=== PATIENT | female | born 1995 | race Caucasian/White ===

== ENCOUNTER 2017-07-20 14:34 | Emergency (ER) | payer SELFPAY ==
--- NOTE | 2017-07-20 14:46 | EDM.PDOC ---
ED HPI GENERAL MEDICAL PROBLEM - General Chief Complaint: Head Injury Stated Complaint: [id number] FELL AND HIT HEAD ON WEDNESDAY Time Seen by Provider: 07/20/17 14:46 Source of Information: Reports: Patient, RN, RN Notes Reviewed History Limitations: Reports: No Limitations - History of Present Illness INITIAL COMMENTS - FREE TEXT/NARRATIVE: Pt fell off a saw horse on Wednesday, July 17 and hit her forehead. Denies LOC , or leak of clear or bloody fluid from the ears or nose. Admits to nausea for a few hours after the injury, but denies vomiting. Denies any other injury. Pt c /o persistent headache. Onset: Sudden Onset Date: 07/17/17 Duration: Constant Location: Reports: Head Quality: Reports: Ache Severity: Moderate Improves with: Reports: None Worsens with: Reports: None Associated Symptoms: Reports: No Other Symptoms Headache Pain Score (Numeric/FACES): 5 - Related Data Allergies Allergy/AdvReac Type Severity Reaction Status Date / Time No Known Allergies Allergy Verified 07/20/17 14:39 Home Meds: Home Meds . [No Known Home Meds] 07/20/17 [History] Past Medical History - Past Health History Medical/Surgical History: Denies Medical/Surgical History Social & Family History - Family History Family Medical History: Noncontributory - Tobacco Use Smoking Status *Q: Current Some Day Smoker Tobacco Use Within Last Twelve Months: Cigarettes - Living Situation & Occupation Living situation: Reports: with Family ED ROS GENERAL - Review of Systems Review Of Systems: ROS reveals no pertinent complaints other than HPI. ED EXAM, HEAD INJURY - Physical Exam Exam: See Below Exam Limited By: No Limitations General Appearance: Alert, WD/WN, No Apparent Distress Head: Normocephalic, Scalp Tenderness (with mild soft tissue swelling, no visible bruising) Nexus Criteria: No: Posterior, Midline Cervical Tenderness, Evidence of Intoxication, Altered Level of Consciousness, Focal Neurological Deficit, Painful Distraction Injuries Eyes: Bilateral Eye: EOMI, Normal Inspection, PERRL Ears: Normal External Exam, Normal Canal, Hearing Grossly Normal, Normal TMs, Other (no hemotympanum) Nose: Normal Inspection, Normal Mucousa, No Blood Throat/Mouth: Normal Inspection, Normal Lips, Normal Teeth, Normal Gums, Normal Oropharynx, Normal Voice, No Airway Compromise Neck: Non-Tender, Full Range of Motion, Normal Alignment, Normal Inspection Respiratory: No Respiratory Distress, Lungs Clear, Normal Breath Sounds, No Accessory Muscle Use, Chest Non-Tender Cardiovascular: Regular Rate, Rhythm Back Exam: Normal Inspection Extremities: Normal Inspection Neurologic: program supervisor II-XII nml As Tested, No Motor/Sensory Deficits, Alert, Normal Mood/Affect, Oriented x 3 Skin: Warm/Dry Course - Vital Signs Last Recorded V/S: Last Vital Signs Temp 37.1 C 07/20/17 14:40 Pulse 120 H 07/20/17 14:40 Resp 16 07/20/17 14:40 BP 146/85 H 07/20/17 14:40 Pulse Ox 100 07/20/17 14:40 Departure - Departure Time of Disposition: 15:24 Disposition: Home, Self-Care 01 Condition: Good Clinical Impression: Concussion with no loss of consciousness - Discharge Information Instructions: Concussion, Adult Forms: ED Department Discharge Additional Instructions: Rest, and follow concussion activity restrictions for 3 week: No contact sports , or activities cause bouncing, jarring, or shaking of the head, or physical exertion. Avoid prolonged concentrating, and prolonged viewing of TV screen, computer monitor, or cell phone. Ibuprofen (Advil/Motrin) 200mg: Take three tablets by mouth every six hours as needed for headache/pain. Take with food. Do not exceed 2400mg in 24 hours. Follow up in clinic for recheck in 2 weeks if not improving as expected.
== END 2017-07-20 15:53 | disposition home or self-care (01) ==
LOC: DL.ED 14:34
DX: S06.0X0A Concussion without loss of consciousness, initial encounter (principal); F17.210 Nicotine dependence, cigarettes, uncomplicated; V80.010A Animal-rider injured by fall from or being thrown from horse in noncollision accident, initial encounter
CPT/HCPCS: 99283

== ENCOUNTER 2021-09-17 13:47 | Emergency (ER) | payer SELFPAY | END 2021-09-17 15:26 | disposition left against medical advice (07) | LOC: DL.ED 13:47 | DX: Z53.21 Procedure and treatment not carried out due to patient leaving prior to being seen by health care provider (principal) ==